=== PATIENT | male | born 1990 | race Caucasian/White ===

== ENCOUNTER 2016-04-19 13:32 | Inpatient (IN) | payer OTHER ==
[~2016-04-19] VITALS: Ht 190.5 cm; Wt 102.0 kg
[~2016-04-19 13:32] MED LIST: LACTATED RINGER'S 1000 ML INJ 1,000 ML IV ONE; ONDANSETRON HCL 4 MG/2 ML VIAL IV PUSH ONE; PROPOFOL 200 MG/20 ML AMP IV ONE
[2016-04-19] MEDS ORDERED: ceFAZolin 2 GM PREMIX 50 ML ONE (13:35)
[2016-04-19] MEDS ORDERED: DIPHTH/TETANUS/ACEL PERTUSSIS (BOOSTER) 0.5 ML VIAL/PFS IM ONE (13:36)
[2016-04-19 13:45] VITALS: O2SAT 98
[2016-04-19 13:53] LABS: I-STAT POTASSIUM 3.8 MMOL/L (3.5-4.9)
[2016-04-19 13:55] LABS: BASOPHIL # 0.1 TH/MM3 (0-0.2); BASOPHIL % 0.9 % (0.0-2.0); EOSINOPHIL # 0.5 TH/MM3 (0-0.4); EOSINOPHIL % 4.1 % (0.0-4.0); HEMATOCRIT 44.5 % (39.0-51.0); HEMO FLAGS DIFF FINAL; LYMPH % 29.6 % (9.0-44.0); LYMPHOCYTE # 3.5 TH/MM3 (1.0-4.8); MEAN CELL VOLUME 86.6 FL (80.0-100.0); MEAN CORPUSCULAR HEMOGLOBIN 29.3 PG (27.0-34.0); MEAN CORPUSCULAR HGB CONC 33.9 % (32.0-36.0); MONO % 6.6 % (0.0-8.0); NEUT % 58.8 % (16.0-70.0); PLATELET COUNT 219 TH/MM3 (150-450); RED BLOOD COUNT 5.14 MIL/MM3 (4.50-5.90); RED CELL DISTRIBUTION WIDTH 13.3 % (11.6-17.2); WHITE BLOOD COUNT 11.9 TH/MM3 (4.0-11.0)
[2016-04-19] MEDS ORDERED: NALOXONE HCL 0.4 MG/ML AMP IV PRN (14:00)
[2016-04-19] MEDS ORDERED: Post-op Orders (for Pharmacy) MISC XX ONE (14:00)
[2016-04-19] MEDS ORDERED: SODIUM CHLORIDE 0.9% FLUSH 5 ML FLUSH IVF PRN (14:00)
[2016-04-19 14:06] LABS: APTT (PATIENT) 24.4 SEC (24.3-30.1); PROTHROMBIN TIME - PATIENT 10.7 SEC (9.8-11.6)
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
[2016-04-19] MEDS ORDERED: IOHEXOL 350 MG/ML 10 ML VIAL (for RAD DIAG) IV ONE (14:26)
[2016-04-19] MEDS: MORPHINE SULFATE 4 MG/ML INJ IV PUSH PRN ×3 (14:32→22:58)
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
[2016-04-19 14:33] VITALS: BP 156/69; PULSE 108; RESP 18; O2SAT 96
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
[2016-04-19 14:34] VITALS: O2SAT 96
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
[2016-04-19 15:34] VITALS: BP 140/66; PULSE 82; RESP 18; O2SAT 97
[2016-04-19] MEDS ORDERED: CLINDAMYCIN INJ 600 MG in SODIUM CHLORIDE 0.9% INJ 50 ML IV SCH (16:00)
[2016-04-19] MEDS ORDERED: BUPIVACAINE/EPINEPHRINE 0.5% PF 30 ML VIAL ONE (16:11)
[2016-04-19] MEDS ORDERED: CLINDAMYCIN PHOS 600 MG/4 ML VIAL ONE (16:49)
[2016-04-19] MEDS ORDERED: BACITRACIN TOP OINT 15 GM TUBE ONE (16:49)
[2016-04-19] MEDS ORDERED: FAMOTIDINE 20 MG/2 ML VIAL ONE (16:55)
[2016-04-19] MEDS ORDERED: diphenhydrAMINE HCL 50 MG/ML VIAL ONE (16:57)
[2016-04-19] MEDS ORDERED: NEOMYCIN/POLYMYXIN 1 ML G.U. IRRIGANT IR ONE (17:05)
[2016-04-19] MEDS ORDERED: SODIUM CHLORIDE 0.9% 20 ML VIAL ONE (17:17)
[2016-04-19] MEDS ORDERED: ceFAZolin INJ 1,000 MG VIAL ONE (17:17)
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
[2016-04-19] MEDS ORDERED: MIDAZOLAM HCL 2 MG/2 ML VIAL ONE (18:40)
[2016-04-19] MEDS ORDERED: fentaNYL CITRATE 250 MCG/5 ML AMP ONE (18:40)
[2016-04-19] MEDS ORDERED: *morphine SULFATE 8 MG/ML PERIprocedure ONLY ONE (18:58)
[2016-04-19] MEDS: SODIUM CHLORIDE 0.9% FLUSH 5 ML FLUSH IVF SCH (20:01)
[2016-04-19] MEDS: SODIUM CHLOR 0.9% 1000 ML INJ 1,000 ML IV SCH (20:03)
[2016-04-19 20:25] VITALS: BP 136/63; PULSE 90; RESP 18; TEMP 96.5; O2SAT 99
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
[2016-04-19 22:12] VITALS: BP 129/58; PULSE 88; RESP 18; O2SAT 97
[2016-04-20 00:29] VITALS: BP 121/70; PULSE 90; RESP 18; TEMP 96.9; O2SAT 97
[2016-04-20] MEDS: CLINDAMYCIN INJ 600 MG in SODIUM CHLORIDE 0.9% INJ 50 ML IV SCH ×3 (01:00→17:37)
[2016-04-20 02:54] VITALS: BP 128/67; PULSE 82; RESP 17; TEMP 97.4; O2SAT 98
[2016-04-20] MEDS: MORPHINE SULFATE 4 MG/ML INJ IV PUSH PRN ×5 (03:44→22:22)
[2016-04-20 08:00] VITALS: BP 119/63; PULSE 86; RESP 17; TEMP 97.1; O2SAT 94
[2016-04-20] MEDS: DOCUSATE SODIUM 50 MG/SENNA 8.6 MG TAB PO SCH ×2 (08:40→20:26)
[2016-04-20] MEDS: FAMOTIDINE 20 MG TAB PO SCH ×2 (08:40→20:26)
[2016-04-20] MEDS: SODIUM CHLORIDE 0.9% FLUSH 5 ML FLUSH IVF SCH ×2 (08:40→20:25)
[2016-04-20] MEDS: SODIUM CHLOR 0.9% 1000 ML INJ 1,000 ML IV SCH (08:41)
[2016-04-20 10:47] LABS: MEAN CORPUSCULAR HGB CONC 36.1 % (32.0-36.0)
[2016-04-20 12:00] VITALS: BP 111/61; PULSE 79; RESP 17; TEMP 97.4; O2SAT 93
[2016-04-20 12:13] LABS: HEMATOCRIT 33.3 % (39.0-51.0); MEAN CORPUSCULAR HEMOGLOBIN 31.4 PG (27.0-34.0); PLATELET COUNT 264 TH/MM3 (150-450); RED BLOOD COUNT 3.83 MIL/MM3 (4.50-5.90); RED CELL DISTRIBUTION WIDTH 13.5 % (11.6-17.2); WHITE BLOOD COUNT 15.4 TH/MM3 (4.0-11.0)
[2016-04-20 12:15] LABS: REVIEW FLAG FINAL
[2016-04-20] MEDS ORDERED: BISACODYL 10 MG SUPP RECTAL PRN (12:30)
[2016-04-20 12:34] LABS: BICARBONATE 25.8 MEQ/L (21.0-32.0); POTASSIUM 4.2 MEQ/L (3.5-5.1)
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
[2016-04-20] MEDS: LACTULOSE SYRUP 20 GM/30 ML CUP PO SCH (13:38)
[2016-04-20] MEDS: ONDANSETRON HCL 4 MG/2 ML VIAL IV PUSH PRN ×2 (14:22→20:30)
[2016-04-20 16:00] VITALS: BP 137/73; PULSE 105; RESP 17; TEMP 97.8; O2SAT 97
[2016-04-20] MEDS: oxyCODONE/ACETAMINOPHEN 5 MG/325 MG TAB PO PRN (18:33)
[2016-04-20 20:00] VITALS: BP 112/57; PULSE 92; RESP 20; TEMP 98; O2SAT 95
[2016-04-21] VITALS: BP 107/48; PULSE 85; RESP 20; TEMP 98.1; O2SAT 97
[2016-04-21] MEDS: SODIUM CHLOR 0.9% 1000 ML INJ 1,000 ML IV SCH ×2 (02:02→09:26)
[2016-04-21] MEDS: oxyCODONE/ACETAMINOPHEN 5 MG/325 MG TAB PO PRN ×5 (02:02→23:19)
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
[2016-04-21] MEDS: SODIUM CHLORIDE 0.9% FLUSH 5 ML FLUSH IVF SCH ×2 (07:48→21:23)
[2016-04-21] MEDS: FAMOTIDINE 20 MG TAB PO SCH ×2 (07:48→21:23)
[2016-04-21] MEDS: DOCUSATE SODIUM 50 MG/SENNA 8.6 MG TAB PO SCH ×2 (07:48→21:23)
[2016-04-21] MEDS: LACTULOSE SYRUP 20 GM/30 ML CUP PO SCH (07:48)
[2016-04-21 08:00] VITALS: BP 115/55; PULSE 95; RESP 17; TEMP 98.4; O2SAT 94
[2016-04-21 12:00] VITALS: BP 109/59; PULSE 99; RESP 17; TEMP 97.6; O2SAT 97
[2016-04-21] MEDS: ONDANSETRON HCL 4 MG/2 ML VIAL IV PUSH PRN (12:44)
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
[2016-04-21 16:00] VITALS: BP 120/60; PULSE 94; RESP 17; TEMP 97.3; O2SAT 98
[2016-04-21] MEDS: BACITRACIN TOP OINT 15 GM TUBE TOP SCH (18:12)
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
[2016-04-21 20:00] VITALS: BP 129/63; PULSE 78; RESP 17; TEMP 98.5; O2SAT 98
[2016-04-22] VITALS: BP 130/62; PULSE 89; RESP 17; TEMP 97.6; O2SAT 98
[2016-04-22] MEDS: oxyCODONE/ACETAMINOPHEN 5 MG/325 MG TAB PO PRN ×4 (04:52→21:52)
[2016-04-22 06:05] LABS: AUTOMATED NEUTROPHIL # 5.5 TH/MM3 (1.8-7.7); BASOPHIL # 0.1 TH/MM3 (0-0.2); BASOPHIL % 0.8 % (0.0-2.0); EOSINOPHIL # 0.6 TH/MM3 (0-0.4); EOSINOPHIL % 6.3 % (0.0-4.0); HEMATOCRIT 27.5 % (39.0-51.0); HEMO FLAGS DIFF FINAL; LYMPH % 24.5 % (9.0-44.0); LYMPHOCYTE # 2.3 TH/MM3 (1.0-4.8); MEAN CELL VOLUME 87.2 FL (80.0-100.0); MEAN CORPUSCULAR HEMOGLOBIN 30.2 PG (27.0-34.0); MEAN CORPUSCULAR HGB CONC 34.7 % (32.0-36.0); MONO % 9.9 % (0.0-8.0); NEUT % 58.5 % (16.0-70.0); PLATELET COUNT 165 TH/MM3 (150-450); RED BLOOD COUNT 3.15 MIL/MM3 (4.50-5.90); RED CELL DISTRIBUTION WIDTH 13.4 % (11.6-17.2); WHITE BLOOD COUNT 9.4 TH/MM3 (4.0-11.0)
[2016-04-22 06:45] LABS: BICARBONATE 28.5 MEQ/L (21.0-32.0); POTASSIUM 3.9 MEQ/L (3.5-5.1)
[2016-04-22 08:00] VITALS: BP 115/60; PULSE 60; RESP 16; TEMP 98.8; O2SAT 97
[2016-04-22] MEDS ORDERED: WALKER WHEELS/F1 MIS (08:15)
[2016-04-22] MEDS ORDERED: MAGNESIUM CITRATE SOLN 300 ML BTL PO ONE (08:15)
[2016-04-22] MEDS: BACITRACIN TOP OINT 15 GM TUBE TOP SCH (09:00)
[2016-04-22] MEDS: SODIUM CHLORIDE 0.9% FLUSH 5 ML FLUSH IVF SCH ×2 (09:00→21:00)
[2016-04-22] MEDS: FAMOTIDINE 20 MG TAB PO SCH ×2 (10:51→21:52)
[2016-04-22] MEDS: LACTULOSE SYRUP 20 GM/30 ML CUP PO SCH (10:51)
[2016-04-22] MEDS: DOCUSATE SODIUM 50 MG/SENNA 8.6 MG TAB PO SCH ×2 (10:51→21:52)
[2016-04-22 12:00] VITALS: BP 124/68; PULSE 78; RESP 18; TEMP 98.1; O2SAT 99
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
[2016-04-22] MEDS: MORPHINE SULFATE 4 MG/ML INJ IV PUSH PRN (13:10)
[2016-04-22] MEDS: ONDANSETRON HCL 4 MG/2 ML VIAL IV PUSH PRN (13:17)
[2016-04-22 16:00] VITALS: BP 132/81; PULSE 80; RESP 17; TEMP 98.3; O2SAT 100
[2016-04-22 20:00] VITALS: BP 134/64; PULSE 88; RESP 17; TEMP 96.7; O2SAT 98
[2016-04-22] MEDS ORDERED: SENN1TAB PO (21:25)
[2016-04-23] VITALS: BP 132/60; PULSE 84; RESP 17; TEMP 97.1; O2SAT 98
[2016-04-23] MEDS: oxyCODONE/ACETAMINOPHEN 5 MG/325 MG TAB PO PRN ×4 (01:46→23:06)
[2016-04-23 08:00] VITALS: BP 118/59; PULSE 65; RESP 16; TEMP 97.9; O2SAT 99
[2016-04-23] MEDS: DOCUSATE SODIUM 50 MG/SENNA 8.6 MG TAB PO SCH ×2 (08:18→23:06)
[2016-04-23] MEDS: FAMOTIDINE 20 MG TAB PO SCH ×2 (08:18→23:06)
[2016-04-23] MEDS: LACTULOSE SYRUP 20 GM/30 ML CUP PO SCH (08:18)
[2016-04-23] MEDS: MORPHINE SULFATE 4 MG/ML INJ IV PUSH PRN ×2 (08:18→15:51)
[2016-04-23] MEDS: SODIUM CHLORIDE 0.9% FLUSH 5 ML FLUSH IVF SCH ×2 (08:19→21:00)
[2016-04-23] MEDS: BACITRACIN TOP OINT 15 GM TUBE TOP SCH (08:19)
[2016-04-23] MEDS: ONDANSETRON HCL 4 MG/2 ML VIAL IV PUSH PRN ×2 (08:19→15:50)
[2016-04-23 12:00] VITALS: BP 109/63; PULSE 78; RESP 17; TEMP 97; O2SAT 97
[2016-04-23] MEDS ORDERED: PERC5TAB12 PO (12:05)
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
[2016-04-23 16:00] VITALS: BP 136/63; PULSE 86; RESP 17; TEMP 96.3; O2SAT 98
--- NOTE | 2016-04-23 19:59 | HHI.PR ---
Subjective Remarks POD#4 Scrotal exploration, wound debridement, Removal of foreign body -Doing well, Pain controlled. No fevers. Objective Vital Signs Vital Signs Date Time Temp Pulse Resp B/P Pulse Ox O2 Delivery O2 Flow Rate FiO2 04/23/16 16:00 96.3 86 17 136/63 98 04/23/16 12:00 97.0 78 17 109/63 97 04/23/16 08:00 97.9 65 16 118/59 99 04/23/16 00:00 97.1 84 17 132/60 98 04/22/16 20:00 96.7 88 17 134/64 98 I/O 04/22/16 04/22/16 04/22/16 04/23/16 04/23/16 04/23/16 07:00 15:00 23:00 07:00 15:00 23:00 Intake Total 240 ml 2320 ml 240 ml 240 ml 1000 ml Output Total 350 ml 5 ml 1 ml 1100 ml Balance -110 ml 2315 ml 239 ml -860 ml 1000 ml Intake Oral 240 ml 2320 ml 240 ml 240 ml 1000 ml IV Total 0 ml 0 ml Output Urine Total 350 ml 5 ml 1 ml 1100 ml # Voids 2 2 # Bowel Movements 0 1 0 Result Diagram: 04/22/16 0450 04/22/16 0450 Imaging Last 72 hours Impressions Pelvis X-Ray 04/19/161338 Signed Impressions: Service Date/Time: Tuesday, April 19, 2016 13:19 - CONCLUSION: Multiple metallic densities indicating possible foreign bodies in the perineal region and medial roximal left thigh. Paramjit Nolan MD Pelvis CTA 04/19/16 1339 Signed Impressions: Service Date/Time: Tuesday, April 19, 2016 13:54 - CONCLUSION: 1. Multiple metallic foreign bodies seen at the base of the scrotum, medial left thigh, and posterior left thigh. 2. No evidence of bony fracture. 3. All the visualized major arterial structures within normal limits. Paramjit Nolan MD Hand X-Ray 04/19/16 0000 Signed Impressions: Service Date/Time: Tuesday, April 19, 2016 13:19 - CONCLUSION: No metallic foreign body or fracture identified. Paramjit Nolan MD Femur X-Ray 04/19/16 0000 Signed Impressions: Service Date/Time: Tuesday, April 19, 2016 13:19 - CONCLUSION: Dominant metallic foreign body in the medial proximal left thigh soft tissues. Several adjacent smaller foreign bodies extending into the perineal region. Paramjit Nolan MD Objective Remarks NAD, AAOx3 Resp NL Scrotal incisions healing well, no erythema, no drainage Drain in place, minimal bloody output. No purulence, no erythema. Mild scrotal edema and ecchymosis noted Assessment and Plan Assessment and Plan POD#4 Scrotal exploration, wound debridement, Removal of foreign body -Drains completely removed at bedside today -Continue local wound care with 4x4 gauze, change as needed -Patient is clear for discharge from urology standpoint with home antibiotics -Follow-up in clinic in 2 weeks for wound check -Please call with questions Harley Bai MD Apr 23, 2016 19:59
[2016-04-23 20:00] VITALS: BP_SYST 128; PULSE 87; RESP 17; TEMP 97.1; O2SAT 100
[2016-04-23] MEDS ORDERED: BACT800T5 PO (20:36)
[2016-04-24] VITALS: BP 127/60; PULSE 77; RESP 17; TEMP 98.2; O2SAT 96
[2016-04-24] MEDS: MORPHINE SULFATE 4 MG/ML INJ IV PUSH PRN ×2 (01:14→12:25)
[2016-04-24] MEDS: ONDANSETRON HCL 4 MG/2 ML VIAL IV PUSH PRN ×2 (01:33→12:25)
[2016-04-24 08:00] VITALS: BP 112/59; PULSE 63; RESP 14; TEMP 97.3; O2SAT 98
[2016-04-24] MEDS: oxyCODONE/ACETAMINOPHEN 5 MG/325 MG TAB PO PRN ×2 (10:02→15:17)
[2016-04-24] MEDS: LACTULOSE SYRUP 20 GM/30 ML CUP PO SCH (10:02)
[2016-04-24] MEDS: DOCUSATE SODIUM 50 MG/SENNA 8.6 MG TAB PO SCH (10:02)
[2016-04-24] MEDS: SODIUM CHLORIDE 0.9% FLUSH 5 ML FLUSH IVF SCH (10:04)
[2016-04-24] MEDS: BACITRACIN TOP OINT 15 GM TUBE TOP SCH (10:04)
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
[2016-04-24 12:00] VITALS: BP 118/58; PULSE 64; RESP 14; TEMP 97.7; O2SAT 96
== END 2016-04-24 16:59 | disposition home health service (06) | DRG 730 ==
LOC: NEPI 13:32 → NEDA 14:18 → EDBD 14:18 → N07A 19:35
PROVIDERS: ADMIT Surgery; ATTEND Surgery
PROC: 3E10X8Z Irrigation of Skin and Mucous Membranes using Irrigating Substance (ICD-10-PCS; 2016-04-19)
PROC: 0V95XZZ Drainage of Scrotum, External Approach (ICD-10-PCS; principal; 2016-04-19 16:44)
PROC: 0VC Male Reproductive System, Extirpation (ICD-10-PCS; 2016-04-19 16:44)
DX: S31.3 Open wound of scrotum and testes (principal); S61.245A Puncture wound with foreign body of left ring finger without damage to nail, initial encounter; S30.22XA Contusion of scrotum and testes, initial encounter; W32.0XXA Accidental handgun discharge, initial encounter; Y92.9 Unspecified place or not applicable; S61.247A Puncture wound with foreign body of left little finger without damage to nail, initial encounter
CPT/HCPCS: 72170; 72191; 73120; 73551; 80048; 82435; 82565; 82947; 84132; 84295; 84520; 85025; 85027; 85610; 85730; 86850; 86900; 86901; 88300; 90471; 90715; 94150; 96374; 99291; G0390; J0690; J1200; J2250; J2270; J2405; J3010; J7030; J7120; Q9967

== ENCOUNTER 2016-04-30 14:06 | Emergency (ER) | payer OTHER ==
[~2016-04-30] VITALS: Ht 190.5 cm; Wt 97.5 kg
[~2016-04-30 14:06] MED LIST changes: +BACT800T5 PO; -LACTATED RINGER'S 1000 ML INJ 1,000 ML IV ONE; -ONDANSETRON HCL 4 MG/2 ML VIAL IV PUSH ONE; +PERC5TAB12 PO; -PROPOFOL 200 MG/20 ML AMP IV ONE; +SENN1TAB PO; +WALKER WHEELS/F1 MIS
[2016-04-30 14:09] VITALS: BP 119/68; PULSE 62; RESP 16; TEMP 97.9; O2SAT 96
[2016-04-30] MEDS ORDERED: PERC5TAB12 PO (15:08)
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
== END 2016-04-30 15:17 | disposition home or self-care (01) ==
LOC: NEPB 14:06
DX: S31.3 Open wound of scrotum and testes (principal); Z76.0 Encounter for issue of repeat prescription; S69.92XA Unspecified injury of left wrist, hand and finger(s), initial encounter; W34.00XA Accidental discharge from unspecified firearms or gun, initial encounter; J45.909 Unspecified asthma, uncomplicated
CPT/HCPCS: 99281

== ENCOUNTER 2016-10-03 17:21 | Emergency (ER) | payer SELFPAY ==
[~2016-10-03] VITALS: Ht 190.5 cm; Wt 100.0 kg
[2016-10-03 17:23] VITALS: BP 152/72; PULSE 104; RESP 15; TEMP 98.2; O2SAT 98
--- NOTE | 2016-10-03 18:04 | PD ---
HPI Chief Complaint: Injury Time Seen by Provider: 17:50 Travel History International Travel<30 days: No Contact w/Intl Traveler<30days: No Traveled to known affect area: No History of Present Illness HPI The patient is a 26-year-old male who presents to the emergency department for reevaluation of his right ankle. The patient states he fractured his right ankle and proximal right fibula last Wednesday while [place] a [place] in [place]. The patient underwent surgery on Wednesday at [facility] and was placed in a splint. The patient returned have on Wednesday and was doing well until he slipped in place weight on the right leg before falling to the left side. The patient complains of increasing pain to the right leg and mild edema to the right leg. The patient has been wearing a splint and using his crutches as directed. The patient does not currently have an orthopedist in the local area. The patient denies any other acute injuries. He denies any numbness or tingling to the right foot, however, does note mild bruising that is now formed on the right foot. Symptoms are mild, exacerbated after fractures ankle and undergoing surgery with recent fall, and there are no current alleviating factors. PFSH Past Medical History Hx Anticoagulant Therapy: Yes (GIVEN ONE FOR PLANE RIDE HOME, INJECTION TO THE BELLY. ) Asthma: Yes Cancer: No Cardiovascular Problems: No Endocrine: No Genitourinary: No Immune Disorder: No Musculoskeletal: Yes Neurologic: No Psychiatric: No Reproductive: No Respiratory: Yes (ASTHMA) Past Surgical History Other Surgery: Yes Social History Alcohol Use: No Tobacco Use: No Substance Use: Yes (marijuana) Allergies-Medications (Allergen,Severity, Reaction): Coded Allergies: No Known Allergies (Unverified , 10/03/16) Reported Meds & Prescriptions Reported Meds & Active Scripts Active Reported Lovenox Inj (Enoxaparin Sodium) 40 Mg/0.4 Ml Syr 40 Mg SQ DAILY Roxicodone (Oxycodone HCl) 5 Mg Tab 5 Mg PO Q4H PRN Docusate Sodium 100 Mg Cap 100 Mg PO BID Hydrocodone-Acetaminophen 10-325 mg Tab 1 Tab PO Q4H PRN Gabapentin 300 Mg Cap 300 Mg PO TID Aspirin 81 Mg Chew 162 Mg CHEW DAILY Baclofen 10 Mg Tab 5 Mg PO TID Review of Systems Except as stated in HPI: all other systems reviewed are Neg Cardiovascular: No: Chest Pain or Discomfort Respiratory: No: Shortness of Breath Gastrointestinal: No: Nausea, Vomiting Musculoskeletal: Positive: Edema, Pain Neurologic: No: Paresthesia, Sensory Disturbance Physical Exam Narrative GENERAL: Awake, alert, 26-year-old male who appears his stated age and is in no acute respiratory distress. SKIN: Focused skin assessment warm/dry. HEAD: Atraumatic. Normocephalic. EYES: Pupils equal and round. No scleral icterus. No injection or drainage. ENT: No nasal bleeding or discharge. Mucous membranes pink and moist. NECK: Trachea midline. No JVD. MUSCULOSKELETAL: The right lower extremity has a bivalve splint in place. The splint was removed. The patient does have mild edema of the right ankle and foot. There is ecchymosis noted over the medial lateral aspect of the right foot. There is iodoform dressings in place over the lateral aspect of the right ankle and no visible drainage or bleeding. Positive dorsalis pedal pulse. Patient is able to wiggle the toes of the right foot. NEUROLOGICAL: Awake and alert. No obvious cranial nerve deficits. Motor grossly within normal limits. Normal speech. Sensation is intact of the medial , lateral, dorsal aspect of the right foot. PSYCHIATRIC: Appropriate mood and affect; insight and judgment normal. Data Data Last Documented VS Vital Signs Date Time Temp Pulse Resp B/P Pulse Ox O2 Delivery O2 Flow Rate FiO2 10/03/16 18:17 78 18 120/85 98 Room Air 10/03/16 17:23 98.2 Orders Tibia/Fibula (Ap/Lat) (10/03/16 ) Splinting (10/03/16 ) MDM Medical Decision Making Medical Screen Exam Complete: Yes Emergency Medical Condition: Yes Medical Record Reviewed: Yes Interpretation(s) X-ray of the right tibia/fibular reveals subacute fracture status post fixation of the fibular shaft and posterior malleolus. Anatomic to near anatomic alignment of the fractures. No evidence of an acute complication. Differential Diagnosis Differential diagnosis includes fracture, contusion, hematoma, DVT, infected wound. Narrative Course The patient's splint was removed and the wound was evaluated. There is no visible dehiscence of the wound. X-ray the right tibia/fibula was performed. X -ray reveals subacute fracture status post fixation with anatomic to near anatomic alignment with no evidence of acute complication. The patient was placed back in a short posterior leg splint. He will be prescribed ibuprofen and [place] for pain. He is advised to follow-up with an orthopedist. Crutches and nonweightbearing as previously directed. Patient Instructions: General Instructions Additional Instructions: Please provide the patient a copy of his x-ray results at discharge. Continue crutches and nonweightbearing. Splint as directed. Follow-up with an orthopedist. Medications as directed. Elevate leg as much as possible to decrease swelling. Med/Other Pt SpecificInfo: Prescription(s) given Scripts Oxycodone-Acetaminophen (Percocet)5-325 mg Tab1 Tab PO Q6H PRN (PAIN) #15 TAB Ref 0 Prov:Fredis Black MD 10/03/16 Ibuprofen 600 Mg [id number] Mg PO Q6H PRN (Pain/Inflammation) #20 TAB Ref 0 Prov:Fredis Black MD 10/03/16 Disposition: 01 DISCHARGE HOME Condition: Stable Fredis Black MD Oct 03, 2016 18:04
[2016-10-03 18:17] VITALS: BP 120/85; PULSE 78; RESP 18; O2SAT 98
[2016-10-03] MEDS ORDERED: DOCU100C PO (18:26)
[2016-10-03] MEDS ORDERED: OXYC1TAB13 PO (18:26)
[2016-10-03] MEDS ORDERED: ASPI81CH CHEW (18:26)
[2016-10-03] MEDS ORDERED: BACL10TA PO (18:26)
[2016-10-03] MEDS ORDERED: GABA300C5 PO (18:26)
[2016-10-03] MEDS ORDERED: HYDR-3583 PO (18:26)
[2016-10-03] MEDS ORDERED: ENOX40P SQ (18:26)
--- NOTE | 2016-10-03 18:32 | RADRPT ---
EXAM DATE/TIME: 10/03/2016 18:11 [facility] COMPARISON: No previous studies available for comparison. INDICATIONS : Right tibia pain after fall last night. Recent surgery to right ankle four days ago. MEDICAL HISTORY : Right ankle fracture. SURGICAL HISTORY : ORIF right ankle. ENCOUNTER: Initial ACUITY: 2 days PAIN SCORE: 10/10 LOCATION: Right ankle. FINDINGS: There is soft tissue swelling, nonspecific but presumably postoperative. Patient has screw and plate fixation of a distal fibular shaft fracture, normally aligned. There is screw fixation of a distal ti camila posterior malleolus fracture, in near anatomic alignment. No evidence of hardware failure or loos ening. CONCLUSION: Subacute fractures status post fixation of the fibular shaft and posterior malleolus. Anatomic to annalisa r anatomic alignment of the fractures. I don't see evidence of an acute complication. Gael Wang MD on October 03, 2016 at 18:28 Board Certified Radiologist. This report was verified electronically.
[2016-10-03] MEDS ORDERED: IBUP-232 PO (18:39)
[2016-10-03] MEDS ORDERED: PERC5TAB12 PO (18:39)
[2016-10-03] MEDS ORDERED: oxyCODONE/ACETAMINOPHEN 5 MG/325 MG TAB PO ONE (18:45)
== END 2016-10-03 19:21 | disposition home or self-care (01) ==
LOC: NEPC 17:21
DX: S82.891D Other fracture of right lower leg, subsequent encounter for closed fracture with routine healing (principal); J45.909 Unspecified asthma, uncomplicated; W19.XXXD Unspecified fall, subsequent encounter; Z79.899 Other long term (current) drug therapy
CPT/HCPCS: 29515; 73590